=== PATIENT | female | born 1990 | race Caucasian/White ===

== ENCOUNTER 2018-08-28 23:55 | Emergency (ER) | payer MEDICAID ==
[2018-08-28 23:56] VITALS: BMI 30.7
[2018-08-29 00:41] VITALS: BP 121/79; PULSE 94; RESP 18; TEMP 97.5; O2SAT 100
== END 2018-08-29 01:20 | disposition left against medical advice (07) ==
LOC: H.ER 23:55
DX: Z02.89 Encounter for other administrative examinations (principal)